=== PATIENT | female | born 1970 | race American Indian/Alaskan Native ===

== ENCOUNTER 2017-07-15 07:21 | Outpatient (CLI) | payer BC ==
--- NOTE | 2017-07-15 18:26 | Magnetic Resonance Report ---
FINAL REPORT EXAM: MR LE JOINT LT WO CON HISTORY: PAIN IN LEFT KNEE TECHNIQUE: Multiplanar MRI of the left knee. No contrast administered. PRIORS: None. FINDINGS: Degenerative change in the patellofemoral joint spaces, including mild-moderate joint space narrowing and partial thinning or denuding of the articular cartilage, as well as mild marginal spurring in the medial joint space. Bone marrow signal intensity within normal limits. No osteochondral defect or occult fracture. Anterior and posterior cruciate and medial and lateral collateral ligaments all appear grossly intact. Quadriceps and patellar tendons also intact. Mild medial extrusion of medial meniscus probably degenerative. Obliquely oriented signal abnormality noted in the medial meniscus posterior horn extending to inferior cartilaginous surface. Anterior horn of medial and lateral menisci grossly unremarkable without discrete or surfacing tear identified. Small joint effusion. No apparent popliteal or Lino cyst. IMPRESSION: 1. Bicompartment degenerative joint disease or osteoarthrosis and small joint effusion. 2. Undersurface tear in medial meniscus posterior horn. 3. No apparent ligamentous insufficiency.
== END 2017-07-15 07:22 | disposition home or self-care (01) ==
LOC: MRI 07:21
PROVIDERS: ATTEND Orthopaedic Surgery
DX: S83.242A Other tear of medial meniscus, current injury, left knee, initial encounter (principal); M17.12 Unilateral primary osteoarthritis, left knee; X58.XXXA Exposure to other specified factors, initial encounter; Y93.89 Activity, other specified; Y92.89 Other specified places as the place of occurrence of the external cause; Y99.8 Other external cause status
CPT/HCPCS: 73721

== ENCOUNTER 2017-12-17 10:57 | Outpatient (CLI) | payer BC ==
--- NOTE | 2017-12-17 14:22 | Cat Scan Report ---
CT ABDOMEN AND PELVIS WITH CONTRAST INDICATION: Right upper quadrant pain. COMPARISON: None similar. FINDINGS: Abdomen and pelvis CT performed following oral contrast and intravenous administration of 100 cc of Omnipaque 300. LUNG BASES: Normal heart size. No effusions. Slight nonspecific distal esophageal prominence/thickening. ABDOMEN: Liver, spleen, gallbladder, pancreas, adrenals, nonaneurysmal abdominal aorta, IVC and kidneys within normal limits bilaterally without hydronephrosis, ascites or size significant adenopathy. Opacified GI tract nonobstructive. Normal appendix. Mild ascending and transverse colon stool admixed with contrast. PELVIS: IUD well situated within the uterus. Few small pelvic phleboliths. Unremarkable urinary bladder and the rectosigmoid. No free fluid or significant adenopathy. Mild lower thoracic spine degenerative spurring. CONCLUSION: No acute CT abnormality with few incidental findings, as above. Thank you for the opportunity to participate in this patient's care.
== END 2017-12-17 10:58 | disposition home or self-care (01) ==
LOC: CT 10:57
PROVIDERS: ATTEND Nurse Practitioner
DX: M46.04 Spinal enthesopathy, thoracic region (principal); I10 Essential (primary) hypertension
CPT/HCPCS: 74177; Q9967

== ENCOUNTER 2018-06-02 07:00 | Inpatient (IN) | payer BC ==
--- NOTE | 2018-05-17 11:00 | Anesthesia Consultation ---
Anesthesia Consult and Med Hx Date of service: 06/02/18 - Airway Anesthetic Teeth Evaluation: Good ROM Head & Neck: Adequate Mental/Hyoid Distance: Adequate Mallampati Class: Class I Intubation Access Assessment: Good - Pre-Operative Health Status ASA Pre-Surgery Classification: ASA3 Proposed Anesthetic Plan: Spinal (SAB; General if needed) Nerve Block: Adductor canal - Pulmonary Hx Smoking: No Hx Sleep Apnea: No (ISABEL PRE SCREEN HIGH RISK.) - Cardiovascular System Hx Hypertension: Yes (X 6 YRS) - Endocrine Hx Non-Insulin Dependent Diabetes: Yes - Hematic Hx Anemia: Yes (ON DAILY IRON) - Other Systems Hx Cancer: No Hx Obesity: Yes
[2018-05-17 11:17] LABS: Alanine Aminotransferase 8 units/L (7-56); Albumin 3.7 g/dL (3.9-5); BUN/Creatinine Ratio 12; Blood Urea Nitrogen 11 mg/dL (7-17); Hemolysis Index 28
[2018-05-17 11:23] LABS: Mean Corpuscular HGB Conc 30 % (30-34); Mean Corpuscular Volume 87 fl (79-97); Platelet Count 297 K/mm3 (140-440); Red Blood Count 4.44 M/mm3 (3.65-5.03); Red Cell Distribution Width 15.5 % (13.2-15.2)
[2018-05-17 11:26] LABS: Hematocrit 38.7 % (30.3-42.9); Hemoglobin 11.7 gm/dl (10.1-14.3)
[~2018-06-02 07:00] MED LIST: ANCEF/STERILE WATER 2 GM/20 ML IV NR; NACL 0.9% 1000 ML 1,000 ML IV SCH
[2018-06-02] MEDS ORDERED: MORPHINE ONE (07:21)
[2018-06-02] MEDS ORDERED: MARCAINE 0.5% INFILTRATI ONE (07:21)
[2018-06-02] MEDS ORDERED: TRANEXAMIC ACID ONE (07:21)
[2018-06-02] MEDS ORDERED: TORADOL ONE ×2 (07:21→12:31)
[2018-06-02] MEDS ORDERED: MARCAINE-EPI/PF 0.5%-1:200,000 INFILTRATI ONE (07:22)
[2018-06-02] MEDS ORDERED: NACL 0.9% 100 ML ONE (07:22)
[2018-06-02] MEDS ORDERED: NACL 0.9% 50 ML ONE (07:39)
[2018-06-02] MEDS ORDERED: VERSED ONE (08:24)
[2018-06-02] MEDS ORDERED: NEURONTIN ONE (08:24)
[2018-06-02] MEDS ORDERED: TYLENOL ONE (08:24)
[2018-06-02] MEDS ORDERED: MARCAINE-EPI 0.5%-1:200,000 INFILTRATI ONE ×2 (10:00→11:21)
[2018-06-02] MEDS ORDERED: DEPO-Medrol ONE ×2 (10:00→11:21)
[2018-06-02] MEDS ORDERED: XYLOCAINE MPF 2% ONE (10:07)
[2018-06-02] MEDS ORDERED: DECADRON ONE (10:07)
[2018-06-02] MEDS ORDERED: ZOFRAN ONE (10:07)
[2018-06-02] MEDS ORDERED: SUBLIMAZE ONE (10:08)
[2018-06-02] MEDS ORDERED: DIPRIVAN 10 MG/ML IV ONE (10:08)
--- NOTE | 2018-06-02 10:43 | Anesthesia Day of Surgery ---
Anesthesia Day of Surgery - Day of Surgery Patient Examined: Yes (note: surgery is for a meniscal repair not total knee r eplacement!!!!) Patient H&P Reviewed: Yes Patient is NPO: Yes Beta Blockers: No Tesfaye's Test: N/A
[2018-06-02] MEDS ORDERED: NACL 0.9% IR ONE (10:52)
[2018-06-02] MEDS ORDERED: DEPO-Medrol INTRA-ARTI ONE (11:21)
[2018-06-02] MEDS: DILAUDID IV PRN ×2 (11:50→12:00)
[2018-06-02] MEDS ORDERED: DILAUDID ONE (11:54)
--- NOTE | 2018-06-02 12:13 | Procedure Note ---
Date of procedure: 06/02/18 Pre-op diagnosis: medial meniscus tear left knee Post-op diagnosis: same Procedure: Arthroscopy left knee partial medial meniscectomy and abrasion chondroplasty Procedure The patient was brought to the OR and placed in the OR table in the supine position following induction and intubation by anesthesia the patient's left lower extremity was prepped and draped in the usual sterile manner a timeout procedure was done to identify the patient and the correct operative site The leg was exsanguinated followed by inflation of the pneumatic tourniquet to 300 mmHg.Routine arthroscopic portals were made following introduction of the arthroscope and insufflation of the joint with normal saline examination revealed these findings patient was noted to have a radial flap tear in the posterior horn of the medial meniscus along with 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 of the mediofemoral condyle and corresponding femoral articular surfaces next the arthroscope was placed into the intercondylar notch anterior cruciate ligament appeared to be intact on probing The lateral meniscus and lateral compartment was seen and appeared to be intact from anterior to posterior following this finally the suprapatellar pouch was also explored there were no obvious pathology seen here next day arthroscopic shaver was brought in and the medial meniscus was then debrided back to healthier appearing cartilage the articular surface was also debrided mildly closed taken not to go too deep with the chondroplasty following this the wound or joint was copiously irrigated a second look was performed the medial meniscus appeared to to be much improved in terms of its appearance the knee was then flexed and extended the digit does not appear to be any extrusion of meniscal tissue or impingement noted next the arthroscope was removed and the stab wounds were repaired a Marcaine and Depo-Medrol injection was an placed in the knee itself this was followed by routine postoperative dressings the patient tolerated the procedure done conditions Anesthesia: MAC Surgeon: THOR OREILLY Frame Catcher: DEL CASAREZ Estimated blood loss: minimal Pathology: none Condition: stable Disposition: PACU
[2018-06-02] MEDS ORDERED: NORCO 7.5/325 ONE (12:52)
[2018-06-02] MEDS ORDERED: NORCO 7.5/325 PO PRN (13:00)
[2018-06-02 13:05] VITALS: BP 139/89
--- NOTE | 2018-06-02 14:40 | Post Anesthesia Evaluation ---
- Post Anesthesia Evaluation Patient Participated: Yes Airway Patent: Yes Stable Respiratory Function: Yes Nausea/Vomiting: No Temp > 96.8F: Yes Pain Manageable: Yes Adequeate Hydration: Yes Anesthesia Complications: No
== END 2018-06-02 14:50 | disposition home or self-care (01) | DRG 488 ==
LOC: 3B-SURG 07:00 → UNDOADMIN 07:53 → 3A 07:53
PROVIDERS: ADMIT Orthopaedic Surgery; ATTEND Orthopaedic Surgery
PROC: 0SQD4ZZ Repair Left Knee Joint, Percutaneous Endoscopic Approach (ICD-10-PCS; principal; 2018-06-02)
DX: S83.242A Other tear of medial meniscus, current injury, left knee, initial encounter (principal); Z68.42 Body mass index [BMI] 45.0-49.9, adult; E66.01 Morbid (severe) obesity due to excess calories; I10 Essential (primary) hypertension; E11.9 Type 2 diabetes mellitus without complications; X58.XXXA Exposure to other specified factors, initial encounter; Y93.89 Activity, other specified; Y92.89 Other specified places as the place of occurrence of the external cause; Y99.8 Other external cause status; Z79.84 Long term (current) use of oral hypoglycemic drugs
CPT/HCPCS: 36415; 80053; 81025; 82962; 85025; G0378; A4217; J0690; J1030; J1100; J1170; J1885; J2250; J2270; J2405; J2704; J3010; J7030

== ENCOUNTER 2018-07-20 09:22 | Outpatient (CLI) | payer BC ==
[2018-07-20 10:07] LABS: Chol/HDL Ratio 4.33 %
== END 2018-07-20 09:23 | disposition home or self-care (01) ==
LOC: LAB 09:22
PROVIDERS: ATTEND Internal Medicine
DX: E11.9 Type 2 diabetes mellitus without complications (principal); I10 Essential (primary) hypertension; E66.01 Morbid (severe) obesity due to excess calories; M19.90 Unspecified osteoarthritis, unspecified site
CPT/HCPCS: 36415; 80061; 83036

== ENCOUNTER 2018-09-01 11:44 | Day surgery (SDC) | payer BC ==
[2018-09-01 12:49] VITALS: BP 176/108
[2018-09-01] MEDS ORDERED: MARCAINE 0.5% INFILTRATI ONE ×2 (12:55→13:29)
[2018-09-01] MEDS ORDERED: XYLOCAINE 1% 20 mL ONE (12:55)
[2018-09-01] MEDS ORDERED: XYLOCAINE 1% 20 mL INFILTRATI ONE (13:28)
--- NOTE | 2018-09-06 13:27 | Procedure Note ---
Date of procedure: 09/01/18 Pre-op diagnosis: left knee pain Post-op diagnosis: same Procedure: Left Geniculate Nerve Block under C-arm fluroscopy procedure The patient taken to the fluroscopy suite in the OR where she was place on the table supine with padded triangular pad placed along the potileal fossa. The left knee prepped and draped in usual sterile fashion. 22-gauge spinal needle used to locate areas for injection, the medial and lateral supracondylar ridges as well as the medial border of the proximal tibia. These areas were anesthized using lidocaine 1% followed by placement of spinal needle near the medial, and lateral geniculate nerves. A mixture of marcaine and lidocaine injected into the deeper structures. There were no complications noted and she tolerated well. Anesthesia: local Surgeon: THOR OREILLY Estimated blood loss: minimal Pathology: none Condition: stable Disposition: observation
== END 2018-09-01 14:27 | disposition home or self-care (01) ==
LOC: OR 11:44
PROVIDERS: ATTEND Orthopaedic Surgery
DX: M25.562 Pain in left knee (principal); I10 Essential (primary) hypertension; E66.9 Obesity, unspecified; M19.90 Unspecified osteoarthritis, unspecified site; E11.9 Type 2 diabetes mellitus without complications; D64.9 Anemia, unspecified; Z79.899 Other long term (current) drug therapy; Z88.8 Allergy status to other drugs, medicaments and biological substances; Z79.84 Long term (current) use of oral hypoglycemic drugs; Z68.42 Body mass index [BMI] 45.0-49.9, adult
CPT/HCPCS: 82962

== ENCOUNTER 2018-09-15 06:55 | Day surgery (SDC) | payer BC ==
[~2018-09-15 06:55] MED LIST changes: -ANCEF/STERILE WATER 2 GM/20 ML IV NR; +DEPO-Medrol INTRA-ARTI ONE; +MARCAINE 0.5% INFILTRATI ONE; -NACL 0.9% 1000 ML 1,000 ML IV SCH
[2018-09-15] MEDS ORDERED: MARCAINE 0.5% INFILTRATI ONE ×2 (07:51→10:35)
[2018-09-15] MEDS ORDERED: DEPO-Medrol ONE (07:51)
[2018-09-15] MEDS ORDERED: XYLOCAINE 2% INFILTRATI ONE ×2 (07:51→10:18)
--- NOTE | 2018-09-15 08:17 | Anesthesia Consultation ---
Anesthesia Consult and Med Hx Date of service: 09/15/18 - Airway Anesthetic Teeth Evaluation: Good ROM Head & Neck: Adequate Mental/Hyoid Distance: Inadequate Intubation Access Assessment: Probably Good - Pulmonary Exam CTA: Yes - Cardiac Exam Cardiac Exam: RRR - Pre-Operative Health Status ASA Pre-Surgery Classification: ASA3 Proposed Anesthetic Plan: General - Pulmonary Hx Smoking: No Hx Sleep Apnea: No (ISABEL PRE SCREEN HIGH RISK.) - Cardiovascular System Hx Hypertension: Yes (X 6 YRS) - Endocrine Hx Non-Insulin Dependent Diabetes: Yes (last metformin 09/14/18) - Hematic Hx Anemia: Yes (ON DAILY IRON) - Other Systems Hx Cancer: No Hx Obesity: Yes (morbid)
--- NOTE | 2018-09-15 08:17 | Anesthesia Day of Surgery ---
Anesthesia Day of Surgery - Day of Surgery Patient Examined: Yes Patient H&P Reviewed: Yes Patient is NPO: Yes
[2018-09-15] MEDS ORDERED: VERSED IV NR (09:00)
[2018-09-15] MEDS ORDERED: NACL 0.9% 1000 ML 1,000 ML IV SCH (09:00)
[2018-09-15] MEDS ORDERED: NEURONTIN PO NR (09:00)
[2018-09-15] MEDS ORDERED: PEPCID PO NR (09:00)
[2018-09-15] MEDS ORDERED: DIPRIVAN 10 MG/ML IV ONE ×6 (09:54→10:37)
[2018-09-15] MEDS ORDERED: DEPO-Medrol INTRA-ARTI ONE (10:35)
--- NOTE | 2018-09-15 10:47 | Procedure Note ---
Date of procedure: 09/15/18 Pre-op diagnosis: chronic left knee pain Post-op diagnosis: same Procedure: Geniculate nerve radiofrequency ablation left knee Procedure The patient was brought to the OR and placed in the OR table supine position patient was Given IV fall and was masked the procedure following this the patient's left knee was prepped and draped in the routine sterile manner. A timeout procedure was done to identify the patient and the correct operative site. Under C-arm visualization the skin was anesthetized with the 1% lidocaine at both the medial and lateral suprapatellar regions as well as the proximal portion of the medial tibial metaphysis and 2 mm proximal to the post superior pole of the patella. Following this the the introducers radiofrequency ablator introducers were inserted into the distal femoral metaphysis close to the bone and midway along the sagittal plane as well as along the proximal tibial metaphysis to be appropriate place simultaneously following this following this the probe were checked for full motor nerve function there did not appear to be any next the radiofrequency ablator was turned on and the nerves were ablated to a temperature of 60C for approximately 2-1/2 minutes each. A mixture of Depo- Medrol and lidocaine was then injected into each location to help with postoperative pain and inflammation. The patient tolerated the procedure there were no complications he was then taken to postanesthesia recovery in a stable condition. Anesthesia: other (IV sedation) Surgeon: THOR OREILLY Estimated blood loss: minimal Pathology: none Condition: stable Disposition: PACU
[2018-09-15] MEDS ORDERED: NORCO 5/325 PO PRN (11:11)
[2018-09-15] MEDS ORDERED: NORCO 5/325 ONE (11:12)
--- NOTE | 2018-09-15 13:12 | XRay Report ---
LEFT KNEE, 2 VIEWS History: Left knee pain, radiofrequency ablation Findings: Fluoroscopy was provided by radiology for radiofrequency ablation by orthopedics. 2 fluoroscopic images of the left knee are presented demonstrating needle placement. The bony structures are intact. Minimal degenerative changes are noted in the medial compartment and patellofemoral space. No fracture or bone lesion. Impression: Needle placement for radioablation. Mild osteoarthritis.
[2018-09-15 20:06] VITALS: BP 148/92
== END 2018-09-15 06:56 | disposition home or self-care (01) ==
LOC: OR 06:55
PROVIDERS: ATTEND Orthopaedic Surgery
DX: M17.12 Unilateral primary osteoarthritis, left knee (principal); I10 Essential (primary) hypertension; E66.01 Morbid (severe) obesity due to excess calories; M19.90 Unspecified osteoarthritis, unspecified site; E11.9 Type 2 diabetes mellitus without complications; F41.9 Anxiety disorder, unspecified; Z88.8 Allergy status to other drugs, medicaments and biological substances; Z79.899 Other long term (current) drug therapy; Z68.42 Body mass index [BMI] 45.0-49.9, adult; Z79.84 Long term (current) use of oral hypoglycemic drugs; Z86.2 Personal history of diseases of the blood and blood-forming organs and certain disorders involving the immune mechanism
CPT/HCPCS: 64640; 73560; 81025; 82803; 82962; A4649; J1030; J2250; J2704; J7030

== ENCOUNTER 2018-10-20 13:12 | Outpatient (CLI) | payer BC ==
--- NOTE | 2018-10-20 14:30 | XRay Report ---
LEFT FOOT, 3 VIEWS INDICATION: M79.672 PAIN IN LEFT FOOT. COMPARISON: None. IMPRESSION: No acute osseous or soft tissue abnormality. No significant DJD. A moderate plantar s pur is identified. Signer Name: Blue Antonio Jr, MD Signed: 10/20/2018 2:26 PM Workstation Name: [id number]
== END 2018-10-20 13:13 | disposition home or self-care (01) ==
LOC: XRAY 13:12
PROVIDERS: ATTEND Orthopaedic Surgery
DX: M79.672 Pain in left foot (principal); I10 Essential (primary) hypertension; E66.9 Obesity, unspecified; E11.9 Type 2 diabetes mellitus without complications

== ENCOUNTER 2018-11-15 11:53 | Outpatient (CLI) | payer BC ==
[2018-11-15 12:53] LABS: Chol/HDL Ratio 3.87 %
[2018-11-19 18:14] LABS: Vitamin D, 25-OH, D2 <4 ng/mL
== END 2018-11-15 11:54 | disposition home or self-care (01) ==
LOC: LAB 11:53
PROVIDERS: ATTEND Internal Medicine
DX: Z13.21 Encounter for screening for nutritional disorder (principal); E11.9 Type 2 diabetes mellitus without complications; E78.5 Hyperlipidemia, unspecified; E55.9 Vitamin D deficiency, unspecified; I10 Essential (primary) hypertension; E66.9 Obesity, unspecified
CPT/HCPCS: 36415; 80061; 82306; 82607; 83036

== ENCOUNTER 2019-02-10 14:15 | Outpatient (CLI) | payer SELFPAY ==
[2019-02-10 15:49] LABS: Basophils # (Auto) 0.1 K/mm3 (0.0-0.1); Basophils % (Auto) 0.7 % (0.0-1.8); Eosinophils # (Auto) 0.2 K/mm3 (0.0-0.4); Eosinophils % (Auto) 2.6 % (0.0-4.3); Hematocrit 36.3 % (30.3-42.9); Hemoglobin 11.9 gm/dl (10.1-14.3); Lymphocytes # (Auto) 2.5 K/mm3 (1.2-5.4); Lymphocytes % (Auto) 27.6 % (13.4-35.0); Mean Corpuscular HGB Conc 33 % (30-34); Mean Corpuscular Volume 81 fl (79-97); Monocytes # (Auto) 0.5 K/mm3 (0.0-0.8); Monocytes % (Auto) 5.4 % (0.0-7.3); Platelet Count 346 K/mm3 (140-440); Red Blood Count 4.47 M/mm3 (3.65-5.03); Red Cell Distribution Width 13.7 % (13.2-15.2)
[2019-02-10 16:01] LABS: Alanine Aminotransferase 12 units/L (7-56); Albumin 4.4 g/dL (3.9-5); BUN/Creatinine Ratio 14; Blood Urea Nitrogen 11 mg/dL (7-17); Calcium 9.7 mg/dL (8.4-10.2); Chol/HDL Ratio 2.97 %; HDL Cholesterol 40 mg/dL (40-59); Hemolysis Index 0; LDL Cholesterol,Direct 69 mg/dL (50-130)
[2019-02-15 15:00] LABS: Vitamin D, 25-OH, D2 <4 ng/mL
== END 2019-02-10 14:16 | disposition home or self-care (01) ==
LOC: LAB 14:15
PROVIDERS: ATTEND Internal Medicine
DX: Z13.21 Encounter for screening for nutritional disorder (principal); Z13.29 Encounter for screening for other suspected endocrine disorder; E55.9 Vitamin D deficiency, unspecified; E78.5 Hyperlipidemia, unspecified; E11.9 Type 2 diabetes mellitus without complications
CPT/HCPCS: 36415; 80053; 80061; 82306; 82607; 83036; 84443; 85025